=== PATIENT | male | born 1955 | race Asian ===

== ENCOUNTER 2017-04-25 13:15 | Emergency (ER) | payer BC ==
[~2017-04-25] VITALS: Ht 165.1 cm; Wt 62.7 kg
[2017-04-25] MEDS ORDERED: SODIUM CHLORIDE FLUSH 10ML SYR IVF ONE (14:00)
[2017-04-25 15:07] LABS: BLOOD UREA NITROGEN 22 mg/dL (7-18)
[2017-04-25 16:18] VITALS: BP 145/88
== END 2017-04-25 16:32 ==
LOC: EDSEX 13:15 → ED 16:26
DX: Q89.2 Congenital malformations of other endocrine glands (principal)
CPT/HCPCS: 36415; 70491; 80048; 82040; 84439; 84443; 85025; 99285